=== PATIENT | female | born 1960 | race Caucasian/White ===

== ENCOUNTER 2023-01-08 07:39 | Emergency (ER) | payer OTHER ==
--- NOTE | 2023-01-08 08:12 | ER ---
Nurse's Notes [facility] Name: Poppy Troncoso Age: 62 yrs Sex: Female : 1960 Arrival Date: 01/08/2023 Time: 07:41 Bed 19 Private MD: Diagnosis: Acute pain, not elsewhere classified;Patient's unintentional underdosing of medication regimen Presentation: 01/08 07:49 Chief complaint: Patient states: is due for a knee replacement and back surgery , c/o iw pain to right knee and lower back, ran out of her pain meds Tylenol #4. Coronavirus screen: At this time, the client does not indicate any symptoms associated with coronavirus-19. Ebola Screen: Patient negative for fever greater than or equal to 101.5 degrees Fahrenheit, and additional compatible Ebola Virus Disease symptoms Patient denies exposure to infectious person. Patient denies travel to an Ebola-affected area in the 21 days before illness onset. No symptoms or risks identified at this time. Initial Sepsis Screen: Does the patient meet any 2 criteria? No. Patient's initial sepsis screen is negative. Does the patient have a suspected source of infection? No. Patient's initial sepsis screen is negative. Risk Assessment: Do you want to hurt yourself or someone else? Patient reports no desire to harm self or others. 07:49 Method Of Arrival: Wheelchair iw 07:49 Acuity: SOFIA 4 iw Historical: - Allergies: 07:51 No Known Allergies; iw - Home Meds: 07:51 Tylenol-Codeine #4 300-60 mg Oral tab 1 tab every 4-6 hours [Active]; iw - PMHx: 07:51 Hyperthyroidism; needs lung transplant; Hypercholesterolemia; iw - PSHx: 07:51 section; iw - Social history:: Smoking status: Patient/guardian denies using tobacco, Stopped _ months ago 8. Screenin:55 [facility] ED Fall Risk Assessment (Adult) History of falling in the last 3 months, aa5 including since admission Yes- single mechanical fall (1 pt) Confusion or Disorientation No (0 pts) Intoxicated or Sedated No (0 pts) Impaired Gait Yes (1 pt) Mobility Assist Device Used Yes (1 pt) Altered Elimination No (0 pt) Score/Fall Risk Level 3 or more points = High Risk Oriented to surroundings, Maintained a safe environment, Educated pt \T\ family on fall prevention, incl call for assistance when getting out of bed, Hourly rounding (assess needs \T\ fall precautionary measures) done. Abuse screen: Denies threats or abuse. Nutritional screening: No deficits noted. Tuberculosis screening: No symptoms or risk factors identified. Assessment: 07:55 General: Appears uncomfortable, Behavior is calm, cooperative. Pain: Complains of pain aa5 in right knee and back Pain currently is 8 out of 10 on a pain scale. Neuro: Level of Consciousness is awake, alert, obeys commands, Oriented to person, place, time, situation. Cardiovascular: Patient's skin is warm and dry. Respiratory: Airway is patent Respiratory effort is even, unlabored, Respiratory pattern is regular, symmetrical. GI: No signs and/or symptoms were reported involving the gastrointestinal system. : No signs and/or symptoms were reported regarding the genitourinary system. EENT: No signs and/or symptoms were reported regarding the EENT system. Derm: Skin is pink, warm \T\ dry. Musculoskeletal: Reports pain in right knee. 08:13 Reassessment: Patient is alert, oriented x 3, equal unlabored respirations, skin aa5 warm/dry/pink. Vital Signs: 07:49 BP 113 / 60; Pulse 69; Resp 20; Temp 97.6; Pulse Ox 91% on R/A; Weight 71.67 kg; Height iw 5 ft. 2 in. (157.48 cm); 07:49 Body Mass Index 28.90 (71.67 kg, 157.48 cm) iw ED Course: 07:41 Patient arrived in ED. as 07:51 Triage completed. iw 07:52 Sudha Man, RN is Primary Nurse. aa5 07:52 Arm band placed on. iw 07:54 Nate Sanderson MD is Attending Physician. kdr 07:55 Patient has correct armband on for positive identification. Bed in low position. Call aa5 light in reach. Side rails up X 1. 08:25 No provider procedures requiring assistance completed. Patient did not have IV access aa5 during this emergency room visit. Administered Medications: 08:13 Drug: Tylenol-Codeine #3 (300 mg - 30 mg) 1 tablet Route: PO; aa5 08:13 Follow up: Response: Medication administered at discharge. aa5 Medication: 08:25 VIS not applicable for this client. aa5 Outcome: 08:12 Discharge ordered by . luis 08:25 Discharged to home via wheelchair, with family. aa5 08:25 Condition: stable 08:25 Discharge instructions given to patient, Instructed on discharge instructions, follow up and referral plans. medication usage, Demonstrated understanding of instructions, follow-up care, medications, Prescriptions given X 1. 08:28 Patient left the ED. as Signatures: Nate Sanderson MD MD kdr Martinez, Amelia as Maribell Matta, RN RN Sudha Man, RN RN aa5
--- NOTE | 2023-01-08 08:12 | EDPHYS ---
Physician Documentation [facility] Name: Poppy Troncoso Age: 62 yrs Sex: Female : 1960 Arrival Date: 01/08/2023 Time: 07:41 Bed 19 Private MD: ED Physician Nate Sanderson HPI: 01/08 10:18 This 62 yrs old Female presents to ER via Wheelchair with complaints of Pain All Over, kdr Medication Refill. 10:18 The patient presents to the emergency department requesting refill(s) for: Tylenol #3. kdr The patient chronically suffers from chronic back pain, Lower extremity pain. Unable to obtain HPI due to. The patient has not experienced similar symptoms in the past. The patient has been recently seen by a physician: . Patient presents with pain in her back and lower extremities. She states this is chronic pain for which she takes Tylenol No. 4. She has been out of her medications for 2 days. She is in transit back to her home but without any new complaint. She has no other focal complaint other than pain relief. Patient is nontoxic-appearing and does not require emergent intervention on initial presentation . Historical: - Allergies: 07:51 No Known Allergies; iw - Home Meds: 07:51 Tylenol-Codeine #4 300-60 mg Oral tab 1 tab every 4-6 hours [Active]; iw - PMHx: 07:51 Hyperthyroidism; needs lung transplant; Hypercholesterolemia; iw - PSHx: 07:51 section; iw - Social history:: Smoking status: Patient/guardian denies using tobacco, Stopped _ months ago 8. ROS: 10:18 Constitutional: Negative for fever, chills, and weight loss, Eyes: Negative for injury, kdr pain, redness, and discharge, ENT: Negative for injury, pain, and discharge, Neck: Negative for injury, pain, and swelling, Cardiovascular: Negative for chest pain, palpitations, and edema, Respiratory: Negative for shortness of breath, cough, wheezing, and pleuritic chest pain, Abdomen/GI: Negative for abdominal pain, nausea, vomiting, diarrhea, and constipation, Back: Negative for injury and pain, : Negative for injury, bleeding, discharge, and swelling, MS/Extremity: Negative for injury and deformity, Skin: Negative for injury, rash, and discoloration, Neuro: Negative for headache, weakness, numbness, tingling, and seizure activity. Psych: Negative for depression, anxiety, suicide ideation, homicidal ideation, and hallucinations, Allergy/Immunology: Negative for hives, rash, and allergies, Hematologic/Lymphatic: Negative for swollen nodes, abnormal bleeding, and unusual bruising. 10:18 Endocrine: Positive for Negative for cold intolerance, heat intolerance, polydipsia, polyphagia, polyuria. Exam: 10:22 Constitutional: Is this was a medication refill only, no exam was provided kdr Vital Signs: 07:49 BP 113 / 60; Pulse 69; Resp 20; Temp 97.6; Pulse Ox 91% on R/A; Weight 71.67 kg; Height iw 5 ft. 2 in. (157.48 cm); 07:49 Body Mass Index 28.90 (71.67 kg, 157.48 cm) iw MDM: 08:12 Patient medically screened. kdr 10:23 Data reviewed: vital signs, nurses notes. kdr 10:23 I considered the following discharge prescriptions or medication management in the [facility] emergency department Medications were administered in the Emergency Department. See MAR. Administered Medications: 08:13 Drug: Tylenol-Codeine #3 (300 mg - 30 mg) 1 tablet Route: PO; aa5 08:13 Follow up: Response: Medication administered at discharge. aa5 Disposition Summary: 01/08/23 08:12 Discharge Ordered Location: Home kdr Problem: new kdr Symptoms: have improved kdr Condition: Stable kdr Diagnosis - Acute pain, not elsewhere classified kdr - Patient's unintentional underdosing of medication regimen kdr Followup: kdr - With: Private Physician - When: 2 - 3 days - Reason: If symptoms return, Further diagnostic work-up, Recheck today's complaints, Continuance of care, Re-evaluation by your physician Discharge Instructions: - Discharge Summary Sheet kdr Forms: - Medication Reconciliation Form kdr - Thank You Letter kdr - Prescription Opioid Use kdr Prescriptions: - acetaminophen-codeine 300-15 mg Oral tablet - take 2 tablet by ORAL route every 8 hours As needed as needed; 10 tablet; kdr Refills: 0, Product Selection Permitted Signatures: Nate Sanderson MD MD kdr Maribell Matta RN RN iw Sudha Man RN RN aa5 Corrections: (The following items were deleted from the chart) 10:23 10:18 The patient has been recently seen by a physician: Patient was recently put on an [facility] automated phone related glucose measuring device which according to the family has recorded recurrent low blood glucose levels during the evenings. Apparently this was not an issue prior to having this device in place. Patient otherwise has not changed dosages of his insulin nor timing. He denies any change in his diet. He denies any upper respiratory infections or any other infection sources. He is otherwise in his usual state of health. He did have a low glucose level once previously when he had been drinking alcohol but denies that to be the case this time, [facility] : Constitutional: This is a well developed, well nourished patient who is awake, kdr alert, and in mild distress. Head/Face: Normocephalic, atraumatic. Eyes: Pupils equal round and reactive to light, extra-ocular motions intact. Lids and lashes normal. Conjunctiva and sclera are non-icteric and not injected. Cornea within normal limits. Periorbital areas with no swelling, redness, or edema. Neck: Trachea midline, no thyromegaly or masses palpated, and no cervical lymphadenopathy. Supple, full range of motion without nuchal rigidity, or vertebral point tenderness. No Meningismus. Chest/axilla: Normal chest wall appearance and motion. Nontender with no deformity. No lesions are appreciated. Cardiovascular: Regular rate and rhythm with a normal S1 and S2. No gallops, murmurs, or rubs. Normal PMI, no JVD. No pulse deficits. Respiratory: Lungs have equal breath sounds bilaterally, clear to auscultation and percussion. No rales, rhonchi or wheezes noted. No increased work of breathing, no retractions or nasal flaring. Abdomen/GI: Soft, non-tender, with normal bowel sounds. No distension or tympany. No guarding or rebound. No evidence of tenderness throughout. kdr
[2023-01-08] MEDS ORDERED: CODEINE 30MG/APAP 300MG TAB ONE (08:15)
== END 2023-01-08 08:28 | disposition home or self-care (01) ==
LOC: ER 07:39
DX: R52 Pain, unspecified (principal); Z91.138 Patient's unintentional underdosing of medication regimen for other reason; Z76.0 Encounter for issue of repeat prescription
CPT/HCPCS: 99283